=== PATIENT | male | born 1970 | race Caucasian/White ===

== ENCOUNTER 2018-04-24 07:50 | Day surgery (SDC) | payer OTHER ==
[2018-04-21 15:32] LABS: HEMOGLOBIN 14.7 g/dL (13.5-17.5); MCH 30.2 pg (26.0-34.0); MCHC 34.2 g/dL (31.0-37.0); MCV 88.3 fL (80.0-100.0); MEAN PLATELET VOLUME 10.4 fL (7.4-10.4); RBC 4.87 10x6/uL (4.20-6.10); RDW 13.7 % (11.5-14.5); WBC 19.4 10x3/uL (4.8-10.8)
[2018-04-21 15:43] LABS: CALC OSMOLALITY 284 mosm/kg (275-300); CALCIUM 9.1 mg/dL (8.5-10.1); CARBON DIOXIDE 26.4 mmol/L (21.0-32.0); CHLORIDE - SERUM 103 mmol/L (98-107); GLUCOSE 92 mg/dL (74-106); POTASSIUM - SERUM 4.5 mmol/L (3.5-5.1); SODIUM 141 mmol/L (136-145); UREA NITROGEN 24 mg/dL (7-18); eGFR NON AFRICAN AMERICAN 85 mL/min (90-120)
[~2018-04-24] VITALS: Ht 182.9 cm; Wt 104.3 kg
[~2018-04-24 07:50] MED LIST: DOXYCYCLINE HY100 M2 PO; MEDROL DOSE PACK4 MG PO
[2018-04-24 09:48] VITALS: BP 135/76; Ht 182.9 cm; Wt 104.3 kg
[2018-04-24] MEDS ORDERED: VALIUM5 MG PO (11:07)
[2018-04-24] MEDS ORDERED: HYDROCODON-ACE1 EAC7 PO (11:07)
[2018-04-24] MEDS ORDERED: MIRALAX17 GM PO (11:08)
== END 2018-04-24 12:55 | disposition home or self-care (01) ==
LOC: D.OPS 07:50 → D.PAN 11:00 → D.OPS 12:55
PROVIDERS: Anesthesiology
DX: K60.1 Chronic anal fissure (principal)

== ENCOUNTER 2018-04-29 11:38 | Observation (INO) | payer OTHER ==
[~2018-04-29] VITALS: Ht 182.9 cm; Wt 104.5 kg
--- NOTE | ~2018-04-29 | MORECARE ---
CASE MANAGEMENT DISCHARGE SUMMARY PATIENT: KIRIT THOMSON UNIT: [id number] ADM DATE: 04/29/18 AGE: 48 : 70 SEX: M ROOM/BED: D.2231 AUTHOR: CHELSY BALES PHYSICIAN: REFERRING PHYSICIAN: CASTRO MALHOTRA MD DATE OF SERVICE: 05/01/18 Discharge Plan Patient Name: KIRIT THOMSON [facility] [facility] 1970 Planned Disposition: Anticipated Discharge Date: Discharge Date: 05/01/2018 Expected LOS: 0 Initial Reviewer: [email or web address] Initial Review Date: 05/01/2018 Generated: 05/01/18 5:50 pm Patient Name: KIRIT THOMSON Page 30224 at 1650 All edits/amendments must be made on the electronic document DICTATION DATE: 05/01/181648 AIRPORT ELECTRICIAN: CATHY 05/01/181648 RPT#: [id number] DC DATE:05/01/18 STATUS: DIS IN [facility] [address] [place] [address] END OF REPORT
[~2018-04-29 11:38] MED LIST changes: +HYDROCODON-ACE1 EAC7 PO; +MIRALAX17 GM PO; +VALIUM5 MG PO
[2018-04-29 15:06] VITALS: BP 127/88; Ht 182.9 cm; Wt 104.5 kg
[2018-04-29 15:27] VITALS: BP 127/88
[2018-04-29 20:39] VITALS: BP 139/81
[2018-04-30 00:20] VITALS: BP 148/78
[2018-04-30 05:02] VITALS: BP 132/72
[2018-04-30 09:04] VITALS: BP 150/84
[2018-04-30 11:52] VITALS: BP 147/83
[2018-04-30 15:32] VITALS: BP 135/72
[2018-04-30 20:50] VITALS: BP 142/82
[2018-05-01 01:20] VITALS: BP 114/61
[2018-05-01 05:28] VITALS: BP 139/87
[2018-05-01 08:37] VITALS: BP 139/82
[2018-05-01] MEDS ORDERED: MIRALAX17 GM PO (09:44)
[2018-05-01] MEDS ORDERED: VALIUM5 MG PO (09:45)
[2018-05-01] MEDS ORDERED: HYDROCODON-ACE1 EAC7 PO (09:45)
[2018-05-01] MEDS ORDERED: MEDROL DOSE PACK4 MG PO (09:45)
== END 2018-05-01 11:26 | disposition home or self-care (01) ==
LOC: D.MS 11:38 → OBSVTIME 11:38 → D.MS 05-01 11:26
DX: L03.315 Cellulitis of perineum (principal); R10.2 Pelvic and perineal pain; T49.0X5A Adverse effect of local antifungal, anti-infective and anti-inflammatory drugs, initial encounter

== ENCOUNTER 2018-05-07 15:12 | Emergency (ER) | payer OTHER ==
[~2018-05-07] VITALS: Ht 182.9 cm; Wt 106.8 kg
[2018-05-07 15:14] VITALS: Ht 182.9 cm; Wt 106.8 kg
[2018-05-07] MEDS ORDERED: BACTROBAN CREAM15 GM TOPICAL (16:01)
[2018-05-07] MEDS ORDERED: KEFLEX500 MG PO (16:02)
[2018-05-07 16:36] VITALS: BP 152/93
== END 2018-05-07 16:36 | disposition home or self-care (01) ==
LOC: D.ER 15:12
DX: L03.317 Cellulitis of buttock (principal)

== ENCOUNTER 2018-05-09 09:33 | Inpatient (IN) | payer OTHER ==
[~2018-05-09] VITALS: Ht 182.9 cm; Wt 108.9 kg
--- NOTE | ~2018-05-09 | MORECARE ---
CASE MANAGEMENT DISCHARGE SUMMARY PATIENT: KIRIT GUO UNIT: [id number] ADM DATE: 05/10/18 AGE: 48 : 70 SEX: M ROOM/BED: D.2231 AUTHOR: CHELSY BALES PHYSICIAN: REFERRING PHYSICIAN: CASTRO MALHOTRA MD DATE OF SERVICE: 05/11/18 Discharge Plan Patient Name: KIRIT GUO Facility: [facility]:[place] : 1970 Planned Disposition: Home Anticipated Discharge Date: Discharge Date: 05/11/2018 Expected LOS: 0 Initial Reviewer: [email or web address] Initial Review Date: 05/09/2018 Generated: 05/11/18 4:13 pm Comments DCP- Discharge Planning Updated by [email or web address]: Maggy Nelson on 05/11/18 8:[address] Patient Name: KIRIT GUO Encounter No: [id number] : 1970 Primary Insurance: [employer] PPO Anticipated DC Date: Planned Disposition: Home External Planned Provider: : DCP follow-up note: Patient in agreement with discharge plan. No changes to plan. Case management will follow and assist as needed. Maggy Nelson DCP- Discharge Planning Updated by [email or web address]: Maggy Nelson on 05/09/18 1:[address] Patient Name: KIRIT GUO Admission Status: Urgent Accout number: [id number] Admission Date: 05-09-2018 : 1970 Admission Diagnosis: Attending: CASTRO MALHOTRA Current LOS: 1 Anticipated DC Date: Planned Disposition: Home Primary Insurance: [employer] PPO Discharge Planning Comments: CM met with patient to discuss discharge planning, he is alone in the room. States he lives with his 15 and 18 year old children. States he is independent with all ADL's and IADL's. States he drove here and will drive himself home. Instructed him not to drive if he receives any medication that will impair his judgment. He declines need for home health or DME. No needs identified. CM will continue to follow and assist with discharge planning/needs. Supervising Law Enforcement Analyst: Maggy Nelson DCPIA - Discharge Planning Initial Assessment Updated by [email or web address]: Maggy Nelson on 05/09/18 2:33 pm * Is the patient Alert and Oriented? Yes * How many steps to enter\exit or inside your home? 0/0 * PCP Dr. Keating * Pharmacy [facility] on [facility] * Preadmission Environment Home with Family * ADLs Independent * Equipment None * List name and contact numbers for known caregivers / representatives who currently or will assist patient after discharge: Lola Guo - [facility] - [phone] * Verbal permission to speak to the caregivers and representatives has been obtained from the patient. Yes * Community resources currently utilized None * Additional services required to return to the preadmission environment? No * Can the patient safely return to the preadmission environment? Yes * Has this patient been hospitalized within the prior 30 days at any hospital? Yes Last DP export: 05/11/18 8:33 Patient Name: KIRIT GUO Page 01510 at 1513 All edits/amendments must be made on the electronic document DICTATION DATE: 05/11/181511 APPLE PICKING SUPERVISOR: CATHY 05/11/181511 RPT#: [id number] DC DATE:05/11/18 STATUS: DIS IN [facility] [address] [place] [address] END OF REPORT
--- NOTE | ~2018-05-09 | MORECARE ---
CASE MANAGEMENT DISCHARGE SUMMARY PATIENT: KIRIT GUO UNIT: [id number] ADM DATE: 05/10/18 AGE: 48 : 70 SEX: M ROOM/BED: D.2231 AUTHOR: CHELSY BALES PHYSICIAN: REFERRING PHYSICIAN: CASTRO MALHOTRA MD DATE OF SERVICE: 05/11/18 Discharge Plan Patient Name: KIRIT GUO Facility: [facility]:[place] : 1970 Planned Disposition: Home Anticipated Discharge Date: Discharge Date: Expected LOS: Initial Reviewer: [email or web address] Initial Review Date: 05/09/2018 Generated: 05/11/18 10:33 am Comments DCP- Discharge Planning Updated by [email or web address]: Maggy Nelson on 05/11/18 8:[address] Patient Name: KIRIT GUO Encounter No: [id number] : 1970 Primary Insurance: [employer] PPO Anticipated DC Date: Planned Disposition: Home External Planned Provider: : DCP follow-up note: Patient in agreement with discharge plan. No changes to plan. Case management will follow and assist as needed. Maggy Nelson DCP- Discharge Planning Updated by [email or web address]: Maggy Nelson on 05/09/18 1:[address] Patient Name: KIRIT GUO Admission Status: Urgent Accout number: [id number] Admission Date: 05-09-2018 : 1970 Admission Diagnosis: Attending: CASTRO MALHOTRA Current LOS: 1 Anticipated DC Date: Planned Disposition: Home Primary Insurance: [employer] PPO Discharge Planning Comments: CM met with patient to discuss discharge planning, he is alone in the room. States he lives with his 15 and 18 year old children. States he is independent with all ADL's and IADL's. States he drove here and will drive himself home. Instructed him not to drive if he receives any medication that will impair his judgment. He declines need for home health or DME. No needs identified. CM will continue to follow and assist with discharge planning/needs. Dress Operator: Maggy Nelson DCPIA - Discharge Planning Initial Assessment Updated by [email or web address]: Maggy Nelson on 05/09/18 2:33 pm * Is the patient Alert and Oriented? Yes * How many steps to enter\exit or inside your home? 0/0 * PCP Dr. Keating * Pharmacy [facility] on [facility] * Preadmission Environment Home with Family * ADLs Independent * Equipment None * List name and contact numbers for known caregivers / representatives who currently or will assist patient after discharge: Lola Guo - [facility] - [phone] * Verbal permission to speak to the caregivers and representatives has been obtained from the patient. Yes * Community resources currently utilized None * Additional services required to return to the preadmission environment? No * Can the patient safely return to the preadmission environment? Yes * Has this patient been hospitalized within the prior 30 days at any hospital? Yes Last DP export: 05/09/18 1:41 Patient Name: KIRIT GOU Page 57365 at 0933 All edits/amendments must be made on the electronic document DICTATION DATE: 05/11/18932 PIPE ORGAN BUILDER: CATHY 05/11/18932 RPT#: [id number] DC DATE: STATUS: ADM IN [facility] [address] [place] [address] END OF REPORT
--- NOTE | ~2018-05-09 | MORECARE ---
CASE MANAGEMENT DISCHARGE SUMMARY PATIENT: KIRIT THOMSON UNIT: [id number] ADM DATE: 05/09/18 AGE: 48 : 70 SEX: M ROOM/BED: D.2231 AUTHOR: CHELSY BALES PHYSICIAN: REFERRING PHYSICIAN: CASTRO MALHOTRA MD DATE OF SERVICE: 05/09/18 Discharge Plan Patient Name: KIRIT THOMSON [facility] [facility] 1970 Planned Disposition: Home Anticipated Discharge Date: Discharge Date: Expected LOS: Initial Reviewer: [email or web address] Initial Review Date: 05/09/2018 Generated: 05/09/18 3:32 pm Patient Name: KIRIT THOMSON Page 80713 at 1432 All edits/amendments must be made on the electronic document DICTATION DATE: 05/09/18 1431 EXERCISE INSTRUCT: CATHY 05/09/18 1431 RPT#: [id number] DC DATE: STATUS: ADM IN [facility] [address] [place] [address] END OF REPORT
--- NOTE | ~2018-05-09 | MORECARE ---
CASE MANAGEMENT DISCHARGE SUMMARY PATIENT: KIRIT GUO UNIT: [id number] ADM DATE: 05/09/18 AGE: 48 : 70 SEX: M ROOM/BED: D.2231 AUTHOR: NII,DOC PHYSICIAN: REFERRING PHYSICIAN: CASTRO MALHOTRA MD DATE OF SERVICE: 05/09/18 Discharge Plan Patient Name: KIRIT GUO Facility: [facility]:[place] : 1970 Planned Disposition: Home Anticipated Discharge Date: Discharge Date: Expected LOS: Initial Reviewer: [email or web address] Initial Review Date: 05/09/2018 Generated: 05/09/18 3:41 pm Comments DCP- Discharge Planning Updated by [email or web address]: Maggy Nelson on 05/09/18 1:[address] Patient Name: KIRIT GUO Admission Status: Urgent Accout number: [id number] Admission Date: 05-09-2018 : 1970 Admission Diagnosis: Attending: CASTRO MALHOTRA Current LOS: 1 Anticipated DC Date: Planned Disposition: Home Primary Insurance: [employer] PPO Discharge Planning Comments: CM met with patient to discuss discharge planning, he is alone in the room. States he lives with his 15 and 18 year old children. States he is independent with all ADL's and IADL's. States he drove here and will drive himself home. Instructed him not to drive if he receives any medication that will impair his judgment. He declines need for home health or DME. No needs identified. CM will continue to follow and assist with discharge planning/needs. Cost And Sales Record Supervisor: Maggy Nelson DCPIA - Discharge Planning Initial Assessment Updated by [email or web address]: Maggy Nelson on 05/09/18 2:33 pm * Is the patient Alert and Oriented? Yes * How many steps to enter\exit or inside your home? 0/0 * PCP Dr. Keating * Pharmacy [facility] on [facility] * Preadmission Environment Home with Family * ADLs Independent * Equipment None * List name and contact numbers for known caregivers / representatives who currently or will assist patient after discharge: Lola Guo - mother - [phone] * Verbal permission to speak to the caregivers and representatives has been obtained from the patient. Yes * Community resources currently utilized None * Additional services required to return to the preadmission environment? No * Can the patient safely return to the preadmission environment? Yes * Has this patient been hospitalized within the prior 30 days at any hospital? Yes Last DP export: 05/09/18 1:32 Patient Name: KIRIT GUO Page 70754 at 1441 All edits/amendments must be made on the electronic document DICTATION DATE: 05/09/181439 VICE PRESIDENT PAYMENT: CATHY 05/09/181439 RPT#: [id number] DC DATE: STATUS: ADM IN [facility] [address] [place] [address] END OF REPORT
[~2018-05-09 09:33] MED LIST changes: +BACTROBAN CREAM15 GM TOPICAL; +KEFLEX500 MG PO
[2018-05-09 10:27] VITALS: BP 136/91
[2018-05-09 10:47] LABS: BASOPHILS 0.6 % (0-2); EOSINOPHILS 10.1 % (0-7); HEMATOCRIT 46.7 % (42.0-54.0); HEMOGLOBIN 15.7 g/dL (13.5-17.5); IMMATURE GRANULOCYTES 2.7 % (0-5); LYMPHOCYTES 17.3 % (15-50); MCH 30.7 pg (26.0-34.0); MCHC 33.6 g/dL (31.0-37.0); MCV 91.2 fL (80.0-100.0); MEAN PLATELET VOLUME 9.9 fL (7.4-10.4); MONOCYTES 8.6 % (2-11); NEUTROPHILS 60.7 % (40-80); PLATELET COUNT 270 10x3/uL (130-400); RBC 5.12 10x6/uL (4.20-6.10); RDW 13.5 % (11.5-14.5); WBC 13.9 10x3/uL (4.8-10.8)
[2018-05-09 10:57] LABS: CALC OSMOLALITY 274 mosm/kg (275-300); CALCIUM 9.1 mg/dL (8.5-10.1); CARBON DIOXIDE 24.1 mmol/L (21.0-32.0); CHLORIDE - SERUM 102 mmol/L (98-107); CREATININE - SERUM 0.9 mg/dL (0.6-1.3); GLUCOSE 89 mg/dL (74-106); MAGNESIUM - SERUM 2.2 mg/dL (1.8-2.4); POTASSIUM - SERUM 4.3 mmol/L (3.5-5.1); SODIUM 136 mmol/L (136-145); UREA NITROGEN 23 mg/dL (7-18); eGFR NON AFRICAN AMERICAN > 90 mL/min (90-120)
[2018-05-09 14:58] VITALS: BP 136/91; BMI 32.6
[2018-05-09 16:07] VITALS: BP 136/91
[2018-05-09 21:47] VITALS: BP 146/84
[2018-05-10 04:00] VITALS: BP 142/76
[2018-05-10 05:00] VITALS: BP 116/80
[2018-05-10 06:01] LABS: BASOPHILS 0.1 % (0-2); EOSINOPHILS 0.7 % (0-7); HEMATOCRIT 42.2 % (42.0-54.0); HEMOGLOBIN 14.7 g/dL (13.5-17.5); MCH 31.4 pg (26.0-34.0); MCHC 34.8 g/dL (31.0-37.0); MCV 90.2 fL (80.0-100.0); MEAN PLATELET VOLUME 10.2 fL (7.4-10.4); MONOCYTES 1.3 % (2-11); NEUTROPHILS 87.9 % (40-80); PLATELET COUNT 279 10x3/uL (130-400); RBC 4.68 10x6/uL (4.20-6.10); RDW 13.2 % (11.5-14.5); WBC 11.3 10x3/uL (4.8-10.8)
[2018-05-10 06:31] LABS: ALBUMIN 2.9 g/dL (3.4-5.0); ALKALINE PHOSPHATASE 75 U/L (46-116); ALT (SGPT) 35 U/L (10-68); BILIRUBIN - TOTAL 0.19 mg/dL (0.2-1.3); CALCIUM 8.7 mg/dL (8.5-10.1); CARBON DIOXIDE 24.1 mmol/L (21.0-32.0); CHLORIDE - SERUM 101 mmol/L (98-107); PROTEIN - SERUM 6.9 g/dL (6.4-8.2); SODIUM 136 mmol/L (136-145); eGFR NON AFRICAN AMERICAN 85 mL/min (90-120)
[2018-05-10 06:35] LABS: CALC OSMOLALITY 279 mosm/kg (275-300); GLUCOSE 198 mg/dL (74-106); UREA NITROGEN 17 mg/dL (7-18)
[2018-05-10 08:26] VITALS: BP 143/75
[2018-05-10 09:33] VITALS: Ht 182.9 cm; Wt 108.9 kg
[2018-05-10 12:16] VITALS: BP 146/86
[2018-05-10 17:05] VITALS: BP 141/78
[2018-05-10 20:00] VITALS: BP 153/81
[2018-05-11 02:01] VITALS: BP 142/82
[2018-05-11 06:58] LABS: HEMATOCRIT 42.3 % (42.0-54.0); HEMOGLOBIN 14.2 g/dL (13.5-17.5); MCH 30.3 pg (26.0-34.0); MCHC 33.6 g/dL (31.0-37.0); MCV 90.2 fL (80.0-100.0); MEAN PLATELET VOLUME 10.3 fL (7.4-10.4); PLATELET COUNT 317 10x3/uL (130-400); RBC 4.69 10x6/uL (4.20-6.10); RDW 13.5 % (11.5-14.5); WBC 31.1 10x3/uL (4.8-10.8)
[2018-05-11 07:17] LABS: ALBUMIN 2.9 g/dL (3.4-5.0); ALKALINE PHOSPHATASE 80 U/L (46-116); ALT (SGPT) 33 U/L (10-68); BILIRUBIN - TOTAL 0.11 mg/dL (0.2-1.3); CALC OSMOLALITY 285 mosm/kg (275-300); CALCIUM 8.8 mg/dL (8.5-10.1); CARBON DIOXIDE 25.2 mmol/L (21.0-32.0); CHLORIDE - SERUM 106 mmol/L (98-107); CREATININE - SERUM 0.8 mg/dL (0.6-1.3); GLUCOSE 202 mg/dL (74-106); POTASSIUM - SERUM 4.4 mmol/L (3.5-5.1); PROTEIN - SERUM 6.7 g/dL (6.4-8.2); SODIUM 139 mmol/L (136-145); UREA NITROGEN 19 mg/dL (7-18); eGFR NON AFRICAN AMERICAN > 90 mL/min (90-120)
[2018-05-11 07:57] LABS: LYMPHOCYTES 9 % (15-50); MONOCYTES 3 % (2-11); NEUTROPHILS 84 % (40-80); PLATELET ESTIMATE NORMAL
[2018-05-11] MEDS ORDERED: VALIUM5 MG PO (08:01)
[2018-05-11] MEDS ORDERED: FEXOFENADINE HC60 MG PO (08:02)
[2018-05-11] MEDS ORDERED: DEMEROL100 MG PO (08:02)
[2018-05-11] MEDS ORDERED: PREDNISONE50 MG PO (08:05)
[2018-05-11] MEDS ORDERED: ATARAX 25 MG TA25 MG PO (08:06)
[2018-05-11 08:28] VITALS: BP 133/73
[2018-05-11] MEDS ORDERED: EPIPEN JR0.15 MG/01 IM (08:39)
== END 2018-05-11 12:15 | disposition home or self-care (01) | DRG 607 ==
LOC: D.MS 09:33 → OBSVTIME 09:35 → D.MS 05-10 15:09
PROVIDERS: Emergency Medicine; Surgery
DX: L29.8 Other pruritus (principal); T88.6XXA Anaphylactic reaction due to adverse effect of correct drug or medicament properly administered, initial encounter; L03.317 Cellulitis of buttock; T50.8X5A Adverse effect of diagnostic agents, initial encounter; Y84.8 Other medical procedures as the cause of abnormal reaction of the patient, or of later complication, without mention of misadventure at the time of the procedure; I10 Essential (primary) hypertension; R73.9 Hyperglycemia, unspecified

== ENCOUNTER → 2018-05-16 15:54 | Outpatient (CLI) | payer OTHER ==
[2018-05-10 09:33] VITALS: BMI 32.5
[~2018-05-16 15:54] MED LIST changes: +ATARAX 25 MG TA25 MG PO; +DEMEROL100 MG PO; +EPIPEN JR0.15 MG/01 IM; +FEXOFENADINE HC60 MG PO; +PREDNISONE50 MG PO
== END | disposition home or self-care (01) ==
LOC: D.MRI 15:54
DX: M19.011 Primary osteoarthritis, right shoulder (principal)

== ENCOUNTER 2018-06-23 09:15 | Day surgery (SDC) | payer OTHER ==
[~2018-06-23] VITALS: Ht 182.9 cm; Wt 113.9 kg
[2018-06-23 10:08] VITALS: BP 144/86; Ht 182.9 cm; Wt 113.9 kg
[2018-06-23] MEDS ORDERED: TORADOL10 MG PO (14:51)
[2018-06-23] MEDS ORDERED: PERCOCET 7.5/321 TAB PO (14:51)
--- NOTE | 2018-06-23 15:25 | NUR ---
REC'D FROM RR. FAMILY AT BEDSIDE. RUE IN A SLING D/T NUMBNESS TO ARM FROM BLOCK. FL TRAY AND ICE WATER BROUGHT TO PT.
--- NOTE | 2018-06-23 15:55 | NUR ---
TOLERATING DIET. RELATES ARM STILL REALLY NUMB. FAMILY AT BEDSIDE.
--- NOTE | 2018-06-23 16:25 | NUR ---
IV DC'D WITH CATHETER INTACT. INSTRUCTED PT HE COULD GET DRESSED THEN WE WOULD COVER HIS DC.
--- NOTE | 2018-06-23 16:35 | NUR ---
WRITTEN AND VERBAL DC INST GIVEN TO PT ALONG WITH RX. VERBALIZED UNDERSTANDING.
--- NOTE | 2018-06-23 16:40 | NUR ---
DC'D HOME WITH FAMILY VIA PRIVATE VEHICLE. TAKEN TO VEHICLE VIA WC. STABLE AT TIME OF DC.
--- NOTE | 2018-06-26 08:29 | OP ---
PATIENT NAME: KIRIT GUO MEDICAL RECORD: [id number] :[birth year] LOCATION:[facility] ADMISSION DATE: SURGEON: ARMANDO SALINAS DO DATE OF OPERATION: 06/23/2018 PROCEDURES PERFORMED: Right shoulder arthroscopy with subacromial decompression, labral debridement, and biceps tenodesis. PREOPERATIVE DIAGNOSES: Right shoulder SLAP tear type 2. Subacromial impingement. POSTOPERATIVE DIAGNOSES: Right shoulder SLAP tear type 2. Subacromial impingement. INDICATIONS: Mr. Guo is a 48-year-old male who presented to my office some time ago with right shoulder pain. He had pain with lifting, any overhead activity, and pain with Speed's and [place]'s testing. He underwent physical therapy and did not do well with that. He still had pain after physical therapy. He even tried injections and this did not help either. MRI was done with contrast which demonstrated SLAP tear and some subacromial impingement. I informed him that since he had tried all nonoperative management, we would try and do biceps tenodesis, labral debridement, subacromial decompression, and likely look at his AC joint as well and make sure it was free of any arthritis. He was okay with the risks including infection, bleeding, damage to nerves and vessels, need for further surgery, and any other complications. He signed the consent. SURGEON: Armando Salinas DO DESCRIPTION OF PROCEDURE: The patient was taken to the operative suite and laid in the left lateral decubitus position with the right arm up. LMA was placed after giving sedation. He was given 900 mg of clindamycin preoperatively. He also received a block by anesthesia in the preoperative area. I was assisted by Neftaly Craig. The time-out was performed and everyone was in agreement with correct side, site, patient, and procedure. The right shoulder was prepped and draped at that time and then the procedure began first with inflating the right shoulder joint with 60 mL of normal saline, entering with an 18-gauge needle through the posterior portal site. This was removed and then #11 blade scalpel was used to establish a posterior portal. Trocar was then entered in the shoulder joint and the water was turned on. Anterior portal was then established. An 18-gauge spinal needle and a trocar were placed through that and then a burner was brought in. With the trocar in, the labrum was inspected. A large labral tear was seen from anterior to posterior on the labrum and the bicep was tenotomized at that time with a burner. The labrum was then debrided with the burner as well and the subscapularis tendon was inspected and seen to be in good shape as well as the supraspinatus and infraspinatus. Inferior gutter was also inspected. No loose bodies were seen it. The cartilage of the shoulder joint itself was in good shape. No cartilage damage was seen. The scope was then moved from the joint to the subacromial space and a lateral portal was established with an 18-gauge spinal needle and then #11 blade scalpel. The shaver was brought in and subacromial decompression was done. The burner was also brought in to clear out the acromion and the AC joint. The AC joint did not have any spurs noted on the distal clavicle. There was good room between it and the acromion visually. After subacromial decompression was done, a bursectomy was done on top of the rotator cuff. This was inspected thoroughly OPERATIVE REPORT [id number] KIRIT GUO and no tears were seen on the bursal side in either of the rotator cuff. The water was then turned off and suction was turned on. Excess fluid was removed from the shoulder and the incision was began on the anterior humerus. Careful dissection was made down to the pec region of the humerus. The biceps that had been tenotomized was pulled out through the incision and whipstitched and then a drill was used to place a unicortical hole. Button was placed on the whipstitched long head of the biceps tendon. It was placed into the humerus and cinched down and then tied and then a free needle was used to tie over the tendon and the excess suture. Excess suture and tendon were removed at that time with the scissors. The site was irrigated and closed with 2-0 Vicryl and a 4-0 Monocryl ran on the skin. Each of the portal sites; anterior, lateral, and posterior, were closed with 4-0 Monocryl in an inverted interrupted fashion. Dermabond was placed on each side and bicep tenodesis site. Then, Telfa and Tegaderm were placed on the incisions. The patient was awakened and taken to recovery in stable condition. Blood loss was minimal. Complications were none. TRANSINT:[id number] Voice Confirmation ID: [id number] DOCUMENT ID: [id number] ARMANDO SALINAS DO at 0829 CC: [id number] DICTATION DATE: 06/23/18 1459 SOLAR INSTALLER: 06/23/18 2305 [facility] 06/23/18 [place] [id number]
== END 2018-06-23 16:40 | disposition home or self-care (01) ==
LOC: D.OPS 09:15
DX: S43.431A Superior glenoid labrum lesion of right shoulder, initial encounter (principal); M75.41 Impingement syndrome of right shoulder; Z01.812 Encounter for preprocedural laboratory examination

== ENCOUNTER 2020-09-12 08:24 | Day surgery (SDC) | payer OTHER ==
[~2020-09-12] VITALS: Ht 182.9 cm; Wt 113.4 kg
[~2020-09-12 08:24] MED LIST changes: +PERCOCET 7.5/321 TAB PO; +TORADOL10 MG PO
[2020-09-12 10:34] VITALS: BP 154/99; Ht 182.9 cm; Wt 113.4 kg
--- NOTE | 2020-09-12 17:07 | NUR ---
IV D/C'D WITH CANNULA INTACT, PRESSURE HELD AND DRSG PLACED. DISCHARGE INSTRUCTIONS GIVEN AND PT VERBALIZED AN UNDERSTANDING. DRSG CDI. STATES PAIN DECREASED TO 3/10.
--- NOTE | 2020-09-13 10:32 | OP ---
PATIENT NAME: KIRIT GUO MEDICAL RECORD: [id number] :[birth year] LOCATION:[facility] ADMISSION DATE: SURGEON: ARMANDO SALINAS DO DATE OF OPERATION: 09/12/2020 PROCEDURE PERFORMED: Left knee arthroscopy with lateral release and PRP injection. 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 INDICATION: Mr. Guo is a 50-year-old male who has tried injections. He had an MRI, which showed grade IV chondromalacia of the patellofemoral joint as well as the lateral tilting patella. I told him we could try to do a lateral release and then PRP injection to see if it gives him some relief. He was tired dealing with the pain. He is aware of the risks and benefits of the procedure including infection, bleeding, damage to nerve or vessel, need for further surgery, continued pain, blood clots and even and he signed the consent. SURGEON: Armando Salinas DO. DESCRIPTION OF PROCEDURE: The patient was taken to the operative suite, laid in supine position, given general anesthetic, LMA was placed, given 2 grams of Ancef preoperatively. The left lower extremity was prepped and draped in sterile fashion. A timeout was performed and everyone was in agreement of correct side, site, patient and procedure. We had drawn 60 mL of blood out of his left AC joint and it was spinning down for the PRP while I performed the arthroscopy. I then established a lateral portal with an 11-blade scalpel, with trocar entered the joint into this suprapatellar pouch. There was no loose body seen in it. However, I did see grade IV chondromalacia of patella and trochlea. No loose body is seen in the lateral gutter or medial gutter. I then flexed the knee down, established a medial port with an 18-gauge spinal needle and 11-blade scalpel, with trocar entered in. I then probed the medial meniscus. No tear was seen in it. The ACL was in good repair as well. There was no chondromalacia seen on the medial femoral condyle or medial tibial plateau. I [id number]-[id number]-[id number]'ed the knee. Lateral was the same. No meniscal tear and there was no fissuring or anything seen in the cartilage of the lateral compartment. Then I switched portals to the medial side, brought in a burner and did a lateral release. I did encounter some bleeding. Tourniquet was inflated to 350 mmHg, then coagulated any bleeding I could and then finished the lateral release and then switched portals back and looked at the patella rode more to the medial side and more in the trochlea; however, the grade IV chondromalacia was present there as well. I then turned the water off and turned the suction on and then injected 6 mL of platelet-rich plasma into the joint through the suprapatellar portal into the suprapatellar pouch. Then Arnav Mcintosh, certified assistant bookkeeper, closed the portal sites with 4-0 Monocryl in inverted interrupted fashion and placed Steri-Strips, Adaptic, 4 x 4, ABD, cast padding and 6-inch Jacek wrap on the knee. He was then awakened and taken to recovery in stable condition. BLOOD LOSS: Minimal. OPERATIVE REPORT [id number] KIRIT GUO COMPLICATIONS: None. TRANSINT:[id number] Voice Confirmation ID: [id number] DOCUMENT ID: [id number] ARMANDO SALINAS DO at 1032 CC: [id number] DICTATION DATE: 09/12/20 1218 ICE CREAM CHEF: 09/12/20 2344 [facility] 09/12/20 [facility] [address] [place] [address]
== END 2020-09-12 14:08 | disposition home or self-care (01) ==
LOC: D.OPS 08:24
PROVIDERS: ATTEND Orthopaedic Surgery
DX: M23.307 Other meniscus derangements, unspecified meniscus, left knee (principal); M25.562 Pain in left knee; M22.2X2 Patellofemoral disorders, left knee
CPT/HCPCS: 29873; 0232T

== ENCOUNTER → 2020-12-22 15:38 | Outpatient (CLI) | payer OTHER ==
[2020-09-12 10:34] VITALS: BMI 34.0
== END | disposition home or self-care (01) ==
LOC: D.LAB 15:38
PROVIDERS: ATTEND Internal Medicine Pulmonary Disease
DX: Z11.52 Encounter for screening for COVID-19 (principal)

== ENCOUNTER → 2020-12-25 11:05 | Outpatient (CLI) | payer OTHER ==
[2020-09-12 10:34] VITALS: BMI 34.0
[2020-12-25 12:57] LABS: BASOPHILS 0.6 % (0-2); EOSINOPHILS 3.5 % (0-7); HEMATOCRIT 44.3 % (42.0-54.0); HEMOGLOBIN 14.2 g/dL (13.5-17.5); LYMPHOCYTES 24.1 % (15-50); MCH 29.8 pg (26.0-34.0); MCHC 32.1 g/dL (31.0-37.0); MCV 92.6 fL (80.0-100.0); MEAN PLATELET VOLUME 8.6 fL (7.4-10.4); NEUTROPHILS 62.8 % (40-80); PLATELET COUNT 324 10x3/uL (130-400); RBC 4.78 10x6/uL (4.20-6.10); RDW 15.1 % (11.5-14.5); WBC 10.5 10x3/uL (4.8-10.8)
[2020-12-25 13:18] LABS: SARS-CoV-2 ANTIGEN NEGATIVE- SARS-COV-2 (NEGATIVE)
== END | disposition home or self-care (01) ==
LOC: D.RT 11:00
PROVIDERS: ATTEND Internal Medicine Pulmonary Disease
DX: J44.9 Chronic obstructive pulmonary disease, unspecified (principal)